=== PATIENT | female | born 1990 | race Hispanic/Latino ===

== ENCOUNTER 2019-02-01 05:30 | Inpatient (IN) | payer OTHER ==
[2019-02-01] MEDS ORDERED: Lidocaine 1% (PF) 30 ML VIAL SC PRN (05:42)
[2019-02-01] MEDS ORDERED: Promethazine HCl 25 MG/ML VIAL IM PRN ×2 (05:42→09:27)
[2019-02-01] MEDS ORDERED: Docusate 100 MG CAP PO PRN (05:42)
[2019-02-01] MEDS ORDERED: Ibuprofen 800 MG TAB PO PRN (05:42)
[2019-02-01] MEDS ORDERED: Ondansetron PF 4 MG/2 ML Vial IVP PRN ×2 (05:42→09:27)
[2019-02-01] MEDS ORDERED: HYDROcodone/Acetaminophen 5/325 mg Tablet PO PRN ×2 (05:42)
[2019-02-01] MEDS ORDERED: Butorphanol Tartrate 1 MG/ML VIAL SLOW IVP PRN (05:42)
[2019-02-01] MEDS ORDERED: NS w/ Oxytocin 10 units 500 ML IV SCH (05:45)
[2019-02-01 06:21] VITALS: BMI 29.9
[2019-02-01] MEDS ORDERED: NS w/ Oxytocin 10 units 500 ML ONE (06:36)
[2019-02-01 06:55] LABS: Hemoglobin 11.3 g/dL (12.0-16.0); Mean Corpuscular HGB CONC 33.2 g/dL (32.0-36.0); Mean Corpuscular Volume 81.4 fL (78.0-98.0); Mean Platelet Volume 10.6 fL (7.4-10.4); Platelet Count 161 thou/uL (130-400); RBC Distribution Width 14.3 % (11.5-14.5); White Blood Cell (WBC) Count 9.3 thou/uL (4.8-10.8)
[2019-02-01] MEDS ORDERED: Misoprostol 200 MCG TAB RC PRN (07:00)
[2019-02-01] MEDS ORDERED: Methylergonovine 0.2 MG/ML VIAL IM PRN (07:00)
[2019-02-01] MEDS ORDERED: Carboprost 250 MCG/ML AMP IM PRN (07:00)
[2019-02-01 07:45] LABS: HBSAg Index 0.31 S/CO (0-0.99); Hep B Surf Ag Non-Reactive S/CO (NonReactive)
[2019-02-01] MEDS ORDERED: Fentanyl 4 mcg/Bup 0.1% Cadd 100 ML ONE ×2 (08:39→15:23)
[2019-02-01 08:58] LABS: Syphilis Antibody Nonreactive (Nonreactive); Syphilis Antibody Index 0.02 S/CO (<1.00 Non-Reactive)
[2019-02-01] MEDS ORDERED: Naloxone HCl 0.4 mg/ml Vial IVP PRN ×2 (09:27)
[2019-02-01] MEDS ORDERED: Acetaminophen 325 MG TAB PO PRN (09:27)
[2019-02-01] MEDS ORDERED: ePHEDrine/0.9% NaCl/PF SYRINGE 50 mg/10 ml SLOW IVP PRN (09:27)
[2019-02-01] MEDS ORDERED: diphenhydrAMINE 50 MG/ML VIAL IVP PRN (09:27)
[2019-02-01] MEDS ORDERED: Lactated Ringer's 500 ML IV PRN (09:27)
[2019-02-01] MEDS ORDERED: Fentanyl 4 mcg/Bupivacaine 0.1% Cassette 100 ML EPIDURAL SCH (09:30)
[2019-02-01] MEDS ORDERED: Communication Order-Pharmacy FS SCH (09:30)
[2019-02-01] MEDS: NS / Oxytocin 40 units/1000ml 1,000 ML IV PRN ×2 (19:30→21:19)
[2019-02-02] MEDS ORDERED: Zolpidem Tartrate 5 MG TAB PO PRN (03:54)
[2019-02-02] MEDS ORDERED: Preparation H Ointment 28 GM TUBE PR PRN (03:54)
[2019-02-02] MEDS ORDERED: Ondansetron PF 4 MG/2 ML Vial IVP PRN (03:54)
[2019-02-02] MEDS ORDERED: Benzocaine-Menthol 82.5 ML CAN TOP PRN (03:54)
[2019-02-02] MEDS ORDERED: HYDROcodone/Acetaminophen 5/325 mg Tablet PO PRN ×2 (03:54)
[2019-02-02] MEDS ORDERED: Bisacodyl 10 MG SUPP PR PRN (03:54)
[2019-02-02] MEDS ORDERED: NS / Oxytocin 40 units/1000ml 1,000 ML IV SCH (03:54)
[2019-02-02] MEDS ORDERED: Lanolin Ointment 7 GM TUBE TOP PRN (03:54)
[2019-02-02] MEDS ORDERED: Milk Of Magnesia 30 ML UDCUP PO PRN (03:54)
[2019-02-02] MEDS: Ibuprofen 800 MG TAB PO SCH ×3 (06:05→21:37)
[2019-02-02] MEDS: Prenatal Vitamin 1 TAB PO SCH (08:48)
[2019-02-02] MEDS: Docusate Calcium (SURFAK) 240 MG CAP PO SCH ×2 (08:48→21:37)
[2019-02-02] MEDS: Ferrous Sulfate 325 MG TAB PO SCH ×2 (08:50→16:53)
[2019-02-02] MEDS: Lactated Ringer's 1,000 ML IV SCH ×3 (08:50→21:37)
[2019-02-02] MEDS ORDERED: Adacel (T-DAP) 0.5 ML SYRINGE IM ONE (09:00)
[2019-02-02] MEDS ORDERED: Bupivacaine 0.25% HCL 30 ML VIAL ONE (11:11)
[2019-02-02] MEDS ORDERED: Bupivacaine/Epinephrine 0.25% 30 ML VIAL ONE (11:11)
[2019-02-03] MEDS: Lactated Ringer's 1,000 ML IV SCH (05:43)
[2019-02-03] MEDS: Ibuprofen 800 MG TAB PO SCH (05:45)
[2019-02-03 09:13] VITALS: BP 119/68; TEMP 98.2
[2019-02-03] MEDS: Docusate Calcium (SURFAK) 240 MG CAP PO SCH (09:48)
[2019-02-03] MEDS: Ferrous Sulfate 325 MG TAB PO SCH (09:48)
[2019-02-03] MEDS: Prenatal Vitamin 1 TAB PO SCH (09:48)
== END 2019-02-03 13:50 | disposition home or self-care (01) | DRG 807 ==
LOC: L&D 05:35 → 3SW 22:15
PROVIDERS: ADMIT Obstetrics & Gynecology; ATTEND Obstetrics & Gynecology
PROC: 10E0XZZ Delivery of Products of Conception, External Approach (ICD-10-PCS; principal; 2019-02-01)
PROC: 0KQM0ZZ Repair Perineum Muscle, Open Approach (ICD-10-PCS; 2019-02-01)
PROC: 3E033VJ Introduction of Other Hormone into Peripheral Vein, Percutaneous Approach (ICD-10-PCS; 2019-02-01)
PROC: 3E0P7VZ Introduction of Hormone into Female Reproductive, Via Natural or Artificial Opening (ICD-10-PCS; 2019-02-01)
PROC: 10907ZC Drainage of Amniotic Fluid, Therapeutic from Products of Conception, Via Natural or Artificial Opening (ICD-10-PCS; 2019-02-01)
DX: O69.81X0 Labor and delivery complicated by cord around neck, without compression, not applicable or unspecified (principal); Z37.0 Single live birth; Z3A.39 39 weeks gestation of pregnancy; O70.1 Second degree perineal laceration during delivery
CPT/HCPCS: 36415; 51702; 85027; 86780; 86850; 86900; 86901; 87340; J2001; J2405; J2590; S0020